=== PATIENT | male | born 1950 | race Caucasian/White ===

== ENCOUNTER → 2020-10-20 | Outpatient (CLI) | payer MEDICARE ==
[2020-10-20 11:44] LABS: HEMOGLOBIN 14.3 gm/dl (14.0-17.5); RED BLOOD COUNT 4.61 M/UL (4.20-5.50); WHITE BLOOD COUNT 11.7 K/UL (4.5-11.0)
[2020-10-20 12:12] LABS: BUN/CREATININE RATIO 13 (0-10)
== END ==
LOC: LAB 10:49
PROVIDERS: Orthopaedic Surgery
DX: Z01.818 Encounter for other preprocedural examination (principal); M54.5 Low back pain
CPT/HCPCS: 36415; 80048; 85027; 93005

== ENCOUNTER → 2021-01-09 | Outpatient (CLI) | payer MEDICARE | LOC: KOH-I 01-03 13:00 | DX: R91.8 Other nonspecific abnormal finding of lung field (principal) | CPT/HCPCS: 71271 ==

== ENCOUNTER 2021-04-24 09:09 | Observation (INO) | payer MEDICARE ==
[~2021-04-24] VITALS: Ht 175.3 cm; Wt 99.3 kg
[2021-04-24 10:10] LABS: RED BLOOD COUNT 4.93 M/UL (4.20-5.50); WHITE BLOOD COUNT 10.6 K/UL (4.5-11.0)
[2021-04-24 10:39] LABS: BUN/CREATININE RATIO 14 (0-10)
[2021-04-24] MEDS ORDERED: LOSARTAN POTASS25 MG PO (11:42)
[2021-04-24] MEDS ORDERED: VITAMIN D325 MCG PO (11:43)
[2021-04-24] MEDS ORDERED: ASPIRIN EC81 MG PO (11:43)
[2021-04-24] MEDS ORDERED: ALKA-SELTZER O1 EACH PO (11:45)
[2021-04-25 06:11] LABS: HEMOGLOBIN 15.5 gm/dl (14.0-17.5); RED BLOOD COUNT 4.96 M/UL (4.20-5.50); WHITE BLOOD COUNT 9.9 K/UL (4.5-11.0)
[2021-04-25 06:34] LABS: BUN/CREATININE RATIO 12 (0-10)
[2021-04-25] MEDS ORDERED: COZAAR 50MG TAB50 MG PO (10:43)
[2021-04-25] MEDS ORDERED: AMLODIPINE BESYL5 MG PO (10:43)
[2021-04-25] MEDS ORDERED: ATORVASTATIN CA20 MG PO (10:43)
[2021-04-25] MEDS ORDERED: CLOPIDOGREL75 MG PO (10:43)
[2021-04-25] MEDS ORDERED: NICOTINE PATCH1 EAC1 TOP (10:43)
== END 2021-04-25 11:27 | disposition home or self-care (01) ==
LOC: ER1 09:09 → MED SURG 4 11:16 → CDU 11:16 → MED SURG 4 11:16
PROVIDERS: Family Medicine; Physician Assistant Medical; ADMIT Internal Medicine
DX: R53.1 Weakness (principal); I10 Essential (primary) hypertension; I65.21 Occlusion and stenosis of right carotid artery; R90.82 White matter disease, unspecified; F17.210 Nicotine dependence, cigarettes, uncomplicated; Z79.82 Long term (current) use of aspirin; Z79.899 Other long term (current) drug therapy; Z88.8 Allergy status to other drugs, medicaments and biological substances; Z20.822 Contact with and (suspected) exposure to COVID-19; Z98.62 Peripheral vascular angioplasty status; Z86.79 Personal history of other diseases of the circulatory system
CPT/HCPCS: ECHO; 36415; 70450; 70496; 70498; 70551; 71045; 80048; 80053; 80061; 81001; 82550; 82553; 83605; 83735; 83874; 84439; 84443; 84484; 85025; 85027; 93005; 93306; 99285; G0378; Q9967; U0002

== ENCOUNTER → 2021-06-05 | Outpatient (CLI) | payer MEDICARE ==
[~2021-06-05] MED LIST: ALKA-SELTZER O1 EACH PO; AMLODIPINE BESYL5 MG PO; ASPIRIN EC81 MG PO; ATORVASTATIN CA20 MG PO; CLOPIDOGREL75 MG PO; COZAAR 50MG TAB50 MG PO; LOSARTAN POTASS25 MG PO; NICOTINE PATCH1 EAC1 TOP; VITAMIN D325 MCG PO
== END ==
LOC: KOH-I 08:00
DX: M54.50 Low back pain, unspecified (principal); M51.36 Other intervertebral disc degeneration, lumbar region
CPT/HCPCS: 72148

== ENCOUNTER → 2021-11-07 | Outpatient (CLI) | payer MEDICARE | LOC: RAD 10:10 | DX: M47.26 Other spondylosis with radiculopathy, lumbar region (principal); M43.16 Spondylolisthesis, lumbar region | CPT/HCPCS: 72120 ==

== ENCOUNTER → 2021-12-11 | Outpatient (CLI) | payer MEDICARE | LOC: RAD 11:27 | DX: M54.16 Radiculopathy, lumbar region (principal); Z98.1 Arthrodesis status; M47.817 Spondylosis without myelopathy or radiculopathy, lumbosacral region | CPT/HCPCS: 72100 ==

== ENCOUNTER → 2022-02-05 | Outpatient (CLI) | payer MEDICARE | LOC: KOH-I 16:08 | DX: F17.210 Nicotine dependence, cigarettes, uncomplicated (principal); R91.1 Solitary pulmonary nodule | CPT/HCPCS: 71271 ==

== ENCOUNTER → 2022-03-01 | Outpatient (CLI) | payer MEDICARE ==
[2022-03-01 11:49] LABS: HEMOGLOBIN 14.1 gm/dl (14.0-17.5); RED BLOOD COUNT 4.5 M/UL (4.20-5.50); WHITE BLOOD COUNT 10.4 K/UL (4.5-11.0)
[2022-03-01 12:11] LABS: BUN/CREATININE RATIO 12 (0-10)
== END ==
LOC: LAB 10:48
PROVIDERS: Family Medicine
DX: M47.26 Other spondylosis with radiculopathy, lumbar region (principal); E55.9 Vitamin D deficiency, unspecified; I10 Essential (primary) hypertension; E78.5 Hyperlipidemia, unspecified; G89.29 Other chronic pain
CPT/HCPCS: 36415; 72100; 80053; 80061; 83735; 85027